=== PATIENT | male | born 1935 | race Two or more races ===

== ENCOUNTER 2018-09-22 06:59 | Inpatient (IN) | payer OTHER ==
[~2018-09-22] VITALS: Ht 182.9 cm; Wt 98.0 kg
[2018-09-22] MEDS ORDERED: FORTAMET500 MG (07:18)
[2018-09-22] MEDS ORDERED: NORVASC10 MG (07:18)
[2018-09-22] MEDS ORDERED: CIPRO500 MG (07:19)
--- NOTE | 2018-09-22 07:20 | NUR ---
SE RECIBE PTE ALERTA Y ORIENTADO X3 ESFERAS, EL CUAL LLEGA EN AMBULANCIA. EL MISMO REFIERE HIPOGLICEMIA AL MOMENTO DXT 177MG/DL. SE PRESENTA A LA MISAEL RENTA Y SE UBICA EN AREA DE OBSERVACION.
--- NOTE | 2018-09-22 07:51 | NUR ---
SE RECIBE PTE MASCULINO DE 83 YRS ALERTA CONCIENTE Y TRANQUILO EN COMPANIA DE FAMILIAR,. PTE LLEGA EN AMBULANCIA Y SE ACOMODA EN MARY CON BARANDAS ELEVADA,. PTE ES EVALUADO POR LA MISAEL, RENTA QUIEN ORDENA TRATAMIENTO LA CUAL SE EJECUTA. SE MANTIENE BAJO OBSERVACIOMN POR CAMBIOS.
== END 2018-09-25 13:08 | disposition home or self-care (01) | DRG 812 ==
LOC: ER 06:59 → MEDJ 09:51 → SEC-K 09:51 → MEDJ 10:41
PROVIDERS: ADMIT Internal Medicine Cardiovascular Disease
PROC: BW21ZZZ Computerized Tomography (CT Scan) of Abdomen and Pelvis (ICD-10-PCS; 2018-09-22)
PROC: 30233N1 Transfusion of Nonautologous Red Blood Cells into Peripheral Vein, Percutaneous Approach (ICD-10-PCS; principal; 2018-09-23)
DX: D64.89 Other specified anemias (principal); N39.0 Urinary tract infection, site not specified; D51.3 Other dietary vitamin B12 deficiency anemia; E11.649 Type 2 diabetes mellitus with hypoglycemia without coma; I10 Essential (primary) hypertension; R97.20 Elevated prostate specific antigen [PSA]

== ENCOUNTER 2019-09-08 11:31 | Outpatient (CLI) | payer OTHER ==
[~2019-09-08 11:31] MED LIST: CIPRO500 MG; FORTAMET500 MG; NORVASC10 MG
== END 2019-09-08 11:36 | disposition home or self-care (01) ==
LOC: RAD 11:31
DX: M46.47 Discitis, unspecified, lumbosacral region (principal)